=== PATIENT | male | born 1960 | race Caucasian/White ===

== ENCOUNTER 2018-01-08 15:30 | Emergency (ER) | payer SELFPAY ==
--- NOTE | 2018-01-08 15:44 | ER Report ---
History and Physical Time Seen By MD: 15:44 HPI/ROS CHIEF COMPLAINT: Shortness of breath HISTORY OF PRESENT ILLNESS: This is a 57-year-old male who presents to the emergency department for shortness of breath. The patient is an over the road tr ucker, who is morbidly obese that has been having increased shortness of breath over the last 2 weeks however since arriving in [place] over the last hour he's had severe shortness of breath, difficulty catching his breath decided come in for further evaluation. Patient can speak in 3-4 word sentences. Patient is obviously working hard to breathe. He denies chest pain, no nausea or vomiting. No diarrhea. He does state however over the last 24 hours he's had a large amount of fluid with minimal output. History of COPD however no history of CHF. Patient is diabetic. No recent fevers or chills. No headaches, no rashes. REVIEW OF SYSTEMS: Constitutional: No fever, no chills. Eyes: No discharge. ENT: No sore throat. Cardiovascular: No chest pain, no palpitations. Respiratory: As above. Gastrointestinal: No abdominal pain, no vomiting. Genitourinary: No hematuria. Musculoskeletal: No back pain. Skin: No rashes. Neurological: No headache. Allergies: Coded Allergies: No Known Drug Allergies (Unverified , 01/08/18) Home Meds Reported Medications Albuterol Sulfate (VENTOLIN HFA) 18 Gm Inh, 1-2 PUFF INH 3-4XD, INH 01/08/18 Liraglutide (VICTOZA 3-ARIANNA) 18 Mg/3 Ml Injs, 6 MG SUBQ HS 01/08/18 Clonidine Hcl (CLONIDINE HCL) 0.1 Mg Tablet, 0.1 MG PO BID, TAB 01/08/18 Metformin Hcl (METFORMIN HCL) 1,000 Mg Tablet, 1 TAB PO BID, TAB 01/08/18 Gabapentin (GABAPENTIN) 300 Mg Capsule, 300 MG PO TID, CAPSULE 01/08/18 Lisinopril/Hydrochlorothiazide (LISINOPRIL-HCTZ 20-12.5 MG TAB) 1 Each Tablet, 1 EACH PO DAILY 01/08/18 Glimepiride (GLIMEPIRIDE) 4 Mg Tablet, 4 MG PO QDAY 01/08/18 Ibuprofen (IBUPROFEN) 800 Mg Tablet, 1 TAB PO Q8H, TAB 01/08/18 Meloxicam (MOBIC) 15 Mg Tablet, 15 MG PO QDAY 01/08/18 Past Medical/Surgical History The patient has a past medical and surgical history of morbidly obese, COPD, sleep apnea, type II diabetes. Reviewed Nurses Notes: Yes Constitutional Vital Sign - Last 24 Hours 01/08/18 01/08/18 01/08/18 01/08/18 15:32 15:38 15:42 15:45 Pulse 123 120 Resp 24 19 B/P (MAP) 138/83 (101) 130/83 Pulse Ox 85 94 O2 Delivery Room Air O2 Flow Rate 3.0 01/08/18 01/08/18 01/08/18 01/08/18 16:00 16:00 16:08 16:15 Pulse 117 116 117 118 Resp 20 18 20 18 B/P (MAP) 112/95 (101) Pulse Ox 95 94 01/08/18 01/08/18 01/08/18 01/08/18 16:24 16:24 16:30 16:34 Pulse 115 113 113 Resp 20 13 20 Pulse Ox 93 98 O2 Delivery Nasal Cannula O2 Flow Rate 3.0 01/08/18 01/08/18 01/08/18 01/08/18 16:45 17:05 17:15 17:20 Pulse 116 114 118 Resp 68 16 34 B/P (MAP) 132/103 (113) Pulse Ox 94 93 92 01/08/18 01/08/18 01/08/18 01/08/18 17:30 17:35 17:50 18:00 Pulse 114 118 Resp 21 B/P (MAP) 133/86 (102) 131/94 (106) Pulse Ox 94 93 O2 Delivery Nasal Cannula Nasal Cannula O2 Flow Rate 3 3 01/08/18 01/08/18 01/08/18 18:05 18:10 18:10 Pulse 113 119 119 Resp 26 29 29 Pulse Ox 94 93 93 O2 Delivery Nasal Cannula Nasal Cannula Nasal Cannula O2 Flow Rate 3 3 3 Physical Exam General Appearance: The patient is alert, has no immediate need for airway protection and no signs of toxicity, increased work of breathing, 3-4 word sentences. Eyes: Pupils equal and round no pallor or injection. ENT, Mouth: Mucous membranes are dry. Respiratory: Diminished lung sounds in all g[place], very faint expiratory wheezes scattered throughout. Cardiovascular: Regular rate and rhythm, distant, no murmurs, clicks or rubs. Gastrointestinal: Abdomen is firm, morbidly obese, distant but normal bowel sounds. No masses, no abdominal bruits. Neurological: Alert and oriented 4. Moving all extremities. Following all commands. No focal neuro deficits. Skin: Warm and dry, no rashes. Musculoskeletal: Neck is supple non tender. Extremities are nontender, nonswollen and have full range of motion. DIFFERENTIAL DIAGNOSIS: After history and physical exam differential diagnosis was considered for shortness of breath including but not limited to pulmonary infectious process, COPD, asthma, pulmonary embolus and congestive heart failure . Medical Decision Making Data Points Result Diagram: 01/08/18 1548 01/08/18 1548 Laboratory Hematology Test 01/08/18 15:48 Red Blood Count 4.20 M/uL (4.00-5.60) Mean Corpuscular Volume 91.7 fL (80.0-96.0) Mean Corpuscular Hemoglobin 31.2 pg (26.0-33.0) Mean Corpuscular Hemoglobin Concent 34.0 g/dL (32.0-36.0) Red Cell Distribution Width 14.6 % (11.5-14.5) Mean Platelet Volume 8.7 fL (7.2-11.1) Neutrophils (%) (Auto) 75.8 % (39.4-72.5) Lymphocytes (%) (Auto) 17.3 % (17.6-49.6) Monocytes (%) (Auto) 5.4 % (4.1-12.4) Eosinophils (%) (Auto) 0.9 % (0.4-6.7) Basophils (%) (Auto) 0.6 % (0.3-1.4) Nucleated RBC Relative Count (auto) 0.0 /100WBC Neutrophils # (Auto) 9.0 K/uL (2.0-7.4) Lymphocytes # (Auto) 2.1 K/uL (1.3-3.6) Monocytes # (Auto) 0.6 K/uL (0.3-1.0) Eosinophils # (Auto) 0.1 K/uL (0.0-0.5) Basophils # (Auto) 0.1 K/uL (0.0-0.1) Nucleated RBC Absolute Count (auto) 0.00 K/uL D-Dimer Quantitative (PE/DVT) 1.65 ug/ml (0-0.50) Sodium Level 131 mmol/L (137-145) Potassium Level 4.6 mmol/L (3.5-5.0) Chloride Level 94 mmol/L (98-107) Carbon Dioxide Level 28 mmol/L (22-30) Blood Urea Nitrogen 23 mg/dl (9-21) Creatinine 1.00 mg/dl (0.66-1.25) Glomerular Filtration Rate Calc > 60.0 Random Glucose 247 mg/dl (75-110) Calcium Level 8.8 mg/dl (8.4-10.2) Total Bilirubin 0.8 mg/dl (0.2-1.3) Aspartate Amino Transf (AST/SGOT) 33 U/L (0-35) Alanine Aminotransferase (ALT/SGPT) 49 U/L (0-56) Alkaline Phosphatase 115 U/L (0-126) Troponin I < 0.012 ng/ml B-Type Natriuretic Peptide 54 pg/ml (0-100) Total Protein 7.6 g/dl (6.3-8.2) Albumin 3.6 g/dl (3.5-5.0) Chemistry Test 01/08/18 15:48 White Blood Count 11.9 k/uL (4.5-11.0) Red Blood Count 4.20 M/uL (4.00-5.60) Hemoglobin 13.1 g/dL (14.0-18.0) Hematocrit 38.5 % (42.0-52.0) Mean Corpuscular Volume 91.7 fL (80.0-96.0) Mean Corpuscular Hemoglobin 31.2 pg (26.0-33.0) Mean Corpuscular Hemoglobin Concent 34.0 g/dL (32.0-36.0) Red Cell Distribution Width 14.6 % (11.5-14.5) Platelet Count 315 K/uL (150-450) Mean Platelet Volume 8.7 fL (7.2-11.1) Neutrophils (%) (Auto) 75.8 % (39.4-72.5) Lymphocytes (%) (Auto) 17.3 % (17.6-49.6) Monocytes (%) (Auto) 5.4 % (4.1-12.4) Eosinophils (%) (Auto) 0.9 % (0.4-6.7) Basophils (%) (Auto) 0.6 % (0.3-1.4) Nucleated RBC Relative Count (auto) 0.0 /100WBC Neutrophils # (Auto) 9.0 K/uL (2.0-7.4) Lymphocytes # (Auto) 2.1 K/uL (1.3-3.6) Monocytes # (Auto) 0.6 K/uL (0.3-1.0) Eosinophils # (Auto) 0.1 K/uL (0.0-0.5) Basophils # (Auto) 0.1 K/uL (0.0-0.1) Nucleated RBC Absolute Count (auto) 0.00 K/uL D-Dimer Quantitative (PE/DVT) 1.65 ug/ml (0-0.50) Glomerular Filtration Rate Calc > 60.0 Calcium Level 8.8 mg/dl (8.4-10.2) Total Bilirubin 0.8 mg/dl (0.2-1.3) Aspartate Amino Transf (AST/SGOT) 33 U/L (0-35) Alanine Aminotransferase (ALT/SGPT) 49 U/L (0-56) Alkaline Phosphatase 115 U/L (0-126) Troponin I < 0.012 ng/ml B-Type Natriuretic Peptide 54 pg/ml (0-100) Total Protein 7.6 g/dl (6.3-8.2) Albumin 3.6 g/dl (3.5-5.0) Coagulation Test 01/08/18 15:48 D-Dimer Quantitative (PE/DVT) 1.65 ug/ml EKG/Imaging EKG Interpretation 12 lead EKG: Entire EKG 1545. Rhythm: Sinus tachycardia, ventricular rate 120 bpm. [place]: normal QRS: normal ST segments: No ST elevation or depression identified, flat T waves in V4, V5 and V6. No previous EKGs for comparison. Imaging EXAMINATION: CT CHEST PULMONARY ANGIOGRAM COMPARISON: None available HISTORY: short of breath, elevated dimer PROCEDURE: Pulmonary arterial phase imaging of the chest with 97 mL intravenous Isovue 370. Reconstruction of the source data set includes multiplanar 2D in the sagittal and coronal planes, and 3D reconstructed coronal slab MIP series. One of the following dose optimization techniques was utilized in the performance of this exam: Automated exposure control; adjustment of the mA and/or kV according to the patient's size; or use of an iterative reconstruction technique. Specific details can be referenced in the facility's radiology CT exam operational policy. FINDINGS: Pulmonary vasculature: There is adequate contrast opacification of the pulmonary arterial system. Main pulmonary artery size is normal. No pulmonary artery filling defect through the subsegmental level. Cardiac and mediastinum: Cardiac chamber size is normal. Advanced coronary calcifications. Large low-attenuation pericardial effusion measuring up to 2.7 cm in maximal thickness along the left ventricle lateral wall. There is no definite CT evidence of mass effect on the cardiac chambers. Thoracic aorta size is within normal limits. Lymph nodes: There are a few prominent nonspecific mediastinal and hilar lymph nodes. Lungs and pleura: Small right pleural effusion. Minimal atelectasis. No consolidation or nodule. No pneumothorax or edema. Airways: Negative. Upper abdomen: Questionable nodular liver. Upper abdominal ascites. Osseous structures: Negative. IMPRESSION: 1. No pulmonary embolism. 2. Large pericardial effusion. There is no definite CT evidence of tamponade physiology although consider further characterization by echocardiography as clinically indicated. 3. Small right pleural effusion. 4. Advanced coronary calcifications. 5. Questionable nodular hepatic contour as well as upper abdominal ascites. Correlation with any history of hepatocellular disease/cirrhosis is recommended. Results were discussed with RACHID GRAMAJO at 01/08/2018 5:28 PM. Report Dictated By: Yvon Tran MD at 01/08/2018 5:20 PM Report E-Signed By: Yvon Tran MD at 01/08/2018 5:29 PM WSN:[facility] ED Course/Re-evaluation Clinical Indication for ER IV: IV Access ED Course The patient was admitted to room. A history and physical were obtained. Differential diagnoses were considered. An IV was started. Patient was given 125 mg IV Solu-Medrol. Patient was given 1 DuoNeb followed up by albuterol nebulizer. Significant improvement after breathing treatments. A CBC, CMP, troponin and d-dimer were obtained. WBC 11.9, H&H 13.1 and 38.5. BUN 23, creatinine 1.0, blood sugar 247. Negative troponin, BNP 54. D-dimer 1.65. He did review the laboratory results with the patient, determined with the elevated d- dimer my suggestion would be a CTA of the chest, patient expressed understanding. CTA of the chest was negative for pulmonary emboli however there was a large pericardial effusion noted as well as a right pleural effusion. I did review these results with the patient. I did speak with Dr. Malena basilio, our hospitalist as well as Dr. Pate the general surgeon on-call, they both recommended transferring to a higher acuity facility that has interventional cardiology. I did speak with Dr. Arellano from [facility] the hat cutter on-call, he has accepted the patient into his services, he will consult with the hospitalist, the patient will be transferred down to [facility] by ground. Patient is agreeable with the ground ambulance transfer. Patient is resting comfortably at this time, heart rate of 112, 93% on 2 L nasal cannula, blood pressure 117/97. 01/08/2018 6:40:28 pm I did speak with Dr. Arellano from [facility], the hat cutter on- call, he is accepted the patient into his services, the patient will be transferred to [facility]. Decision to Disposition Date: Jan 08, 2018 Decision to Disposition Time: 18:37 Depart Departure Latest Vital Signs Vital Signs Date Time Temp Pulse Resp B/P (MAP) Pulse Ox O2 Delivery O2 Flow Rate FiO2 01/08/18 18:10 119 29 93 Nasal Cannula 3 01/08/18 18:00 131/94 (106) Impression: Primary Impression: Pericardial effusion Additional Impression: Pleural effusion Condition: Improved Disposition: XFER TO [facility] ([facility] Problem Qualifiers RACHID GRAMAJO [employer] SECRETARY-BC Jan 08, 2018 15:44
[2018-01-08] MEDS ORDERED: methylPREDNIS SUCC 125 MG/2ML IVP ONE ×2 (15:50→16:40)
[2018-01-08] MEDS ORDERED: ALBUTEROL/IPRATROPIUM 3 ML NEB NEB SCH (15:50)
[2018-01-08] MEDS ORDERED: IBUP800T37 PO (15:53)
[2018-01-08] MEDS ORDERED: METF-452 PO (15:53)
[2018-01-08] MEDS ORDERED: GLIM4TAB50 PO (15:53)
[2018-01-08] MEDS ORDERED: CLON-327 PO (15:53)
[2018-01-08] MEDS ORDERED: GABA-549 PO (15:53)
[2018-01-08] MEDS ORDERED: MELO-150 PO (15:53)
[2018-01-08] MEDS ORDERED: LISI-353 PO (15:53)
[2018-01-08] MEDS ORDERED: LIR18IPT SUBQ (15:54)
[2018-01-08] MEDS ORDERED: ALB18R INH (15:54)
[2018-01-08 16:04] LABS: PLATELET COUNT, AUTOMATED 315 K/uL (150-450)
[2018-01-08] MEDS ORDERED: ALBUTEROL 2.5 MG/0.5ML ER ONLY NEB ONE (16:20)
--- NOTE | 2018-01-08 16:38 | EKG ---
FACILITY: [facility] - [place] PATIENT NAME: GUY CASAS : [id number] MR: [id number] V: [id number] EXAM DATE: ORDERING PHYSICIAN: RACHID GRAMAJO TECHNOLOGIST: NATALIE Test Reason : SOB Blood Pressure : / mmHG Vent. Rate : 120 BPM Atrial Rate : 120 BPM P-R Int : 156 ms QRS Dur : 094 ms QT Int : 338 ms P-R-T Axes : 060 032 078 degrees QTc Int : 477 ms Sinus tachycardia Low voltage QRS Nonspecific T wave abnormality Abnormal ECG No previous ECGs available Confirmed by Scott Brown ([id number]) on 01/08/2018 9:02:08 PM Referred By: SANTIAGO Confirmed By:Scott Mcdermott
[2018-01-08] MEDS ORDERED: NS(*) 0.9% 50 ML BAG 50 ML ONE (16:43)
[2018-01-08] MEDS ORDERED: IOPAMIDOL 76% 100 ML INFUS BTL 100 ML ONE (16:43)
--- NOTE | 2018-01-08 17:32 | RADIOLOGY IMAGING REPORT ---
FACILITY: [facility] PATIENT NAME: Chele Garrett : 1960 MR: [id number] V: [id number] EXAM DATE: ORDERING PHYSICIAN: RACHID GRAMAJO TECHNOLOGIST: Location: [facility] Patient: Chele Garrett : 1960 Visit/Account:[id number] Date of Sevice: 01/08/2018 EXAMINATION: CT CHEST PULMONARY ANGIOGRAM COMPARISON: None available HISTORY: short of breath, elevated dimer PROCEDURE: Pulmonary arterial phase imaging of the chest with 97 mL intravenous Isovue 370. Reconstru ction of the source data set includes multiplanar 2D in the sagittal and coronal planes, and 3D recon structed coronal slab MIP series. One of the following dose optimization techniques was utilized in the performance of this exam: Autom ated exposure control; adjustment of the mA and/or kV according to the patient's size; or use of an i terative reconstruction technique. Specific details can be referenced in the facility's radiology C T exam operational policy. FINDINGS: Pulmonary vasculature: There is adequate contrast opacification of the pulmonary arterial system. Ma in pulmonary artery size is normal. No pulmonary artery filling defect through the subsegmental leve l. Cardiac and mediastinum: Cardiac chamber size is normal. Advanced coronary calcifications. Large lo w-attenuation pericardial effusion measuring up to 2.7 cm in maximal thickness along the left ventric le lateral wall. There is no definite CT evidence of mass effect on the cardiac chambers. Thoracic aorta size is within normal limits. Lymph nodes: There are a few prominent nonspecific mediastinal and hilar lymph nodes. Lungs and pleura: Small right pleural effusion. Minimal atelectasis. No consolidation or nodule. N o pneumothorax or edema. Airways: Negative. Upper abdomen: Questionable nodular liver. Upper abdominal ascites. Osseous structures: Negative. IMPRESSION: 1. No pulmonary embolism. 2. Large pericardial effusion. There is no definite CT evidence of tamponade physiology although co nsider further characterization by echocardiography as clinically indicated. 3. Small right pleural effusion. 4. Advanced coronary calcifications. 5. Questionable nodular hepatic contour as well as upper abdominal ascites. Correlation with any hi story of hepatocellular disease/cirrhosis is recommended. Results were discussed with RACHID GRAMAJO at 01/08/2018 5:28 PM. Report Dictated By: Yvon Tran MD at 01/08/2018 5:20 PM Report E-Signed By: Yvon Tran MD at 01/08/2018 5:29 PM WSN:[id number]
[2018-01-08 18:00] VITALS: BP 131/94
[2018-01-08] MEDS ORDERED: MORPHINE 4 MG/ML SDV IVP ONE (19:20)
== END 2018-01-08 20:00 | disposition short-term general hospital (02) ==
LOC: ER 15:59
DX: I31.3 Pericardial effusion (noninflammatory) (principal)
CPT/HCPCS: 71275; 83880; 84484; 85025; 85379; 93005; 94640; 96374; 96375; 99285; J2270; J2930; J7050; J7611; J7620; Q9967; 82040; 82247; 82310; 82374; 82435; 82565; 82947; 84075; 84132; 84155; 84295; 84450; 84460; 84520

== ENCOUNTER → 2018-01-08 | Outpatient (CLI) | payer SELFPAY ==
[~2018-01-08] MED LIST: ALB18R INH; CLON-327 PO; GABA-549 PO; GLIM4TAB50 PO; IBUP800T37 PO; LIR18IPT SUBQ; LISI-353 PO; MELO-150 PO; METF-452 PO
== END ==
LOC: AMB 19:37
PROVIDERS: ATTEND Nurse Practitioner
DX: I31.3 Pericardial effusion (noninflammatory) (principal); J90 Pleural effusion, not elsewhere classified; E11.9 Type 2 diabetes mellitus without complications; I10 Essential (primary) hypertension; J44.9 Chronic obstructive pulmonary disease, unspecified
CPT/HCPCS: A0425; A0428